=== PATIENT | female | born 1955 | race African-American/Black ===

== ENCOUNTER 2020-08-31 11:16 | Inpatient (IN) | payer OTHER ==
[2020-08-31] MEDS ORDERED: KETOROLAC TROMETHAMINE 60 MG/2 ML VIAL IM ONE (12:46)
[2020-08-31] MEDS ORDERED: diazePAM 2 MG TABLET PO ONE (12:47)
[2020-08-31] MEDS ORDERED: LIDOCAINE 5% TOPICAL PATCH TP ONE (12:47)
[2020-08-31] MEDS ORDERED: ACETAMINOPHEN 500 MG TABLET (FP) PO ONE (12:47)
[2020-08-31] MEDS ORDERED: LIDOCAINE 5% TOPICAL PATCH ONE (12:57)
[2020-08-31] MEDS ORDERED: ACETAMINOPHEN 500 MG TABLET (FP) ONE (12:58)
[2020-08-31] MEDS ORDERED: KETOROLAC TROMETHAMINE 30 MG/1 ML VIAL ONE (12:58)
[2020-08-31] MEDS ORDERED: diazePAM 2 MG TABLET ONE (12:58)
[2020-08-31] MEDS ORDERED: predniSONE 20 MG TABLET (UD) PO ONE (14:45)
[2020-08-31] MEDS ORDERED: morphine CARPU-JECT 2 MG/1 ML DISP.SYRIN IVPUSH ONE (14:59)
[2020-08-31] MEDS ORDERED: ONDANSETRON 4 MG/2 ML VIAL IVPUSH ONE (14:59)
[2020-08-31] MEDS ORDERED: MORPHINE SULFATE 2 MG/ML VIAL ONE (15:21)
[2020-08-31] MEDS ORDERED: ONDANSETRON 4 MG/2 ML VIAL ONE (15:21)
[2020-08-31] MEDS ORDERED: predniSONE 20 MG TABLET (UD) ONE (15:21)
[2020-08-31 15:30] LABS: BASO % 0.7 % (0-2.0); EOS % 0.2 % (0-4.5); HEMATOCRIT 34.5 % (32.4-45.2); HEMOGLOBIN 11.4 GM/dL (10.7-15.3); LYMPH % 24.7 % (8-40); MCH 29.9 pg (25.7-33.7); MCHC 33.2 g/dl (32.0-36.0); MEAN CELL VOLUME 90.1 fl (80-96); MEAN PLT VOLUME 8.3 fl (7.5-11.1); MONO % 10.4 % (3.8-10.2); PLATELET COUNT 262 K/MM3 (134-434); RBC 3.82 M/mm3 (3.60-5.2); RDW 12.7 % (11.6-15.6); WHITE BLOOD COUNT 5.7 K/mm3 (4.0-10.0)
[2020-08-31 15:53] LABS: POTASSIUM 3.6 mmol/L (3.5-5.1)
[2020-08-31 15:55] LABS: CALCIUM 9.5 mg/dL (8.5-10.1)
[2020-08-31 15:56] LABS: ALBUMIN 4.2 g/dl (3.4-5.0); BLOOD UREA NITROGEN 11.6 mg/dL (7-18)
[2020-08-31 15:59] LABS: CREATININE 0.9 mg/dL (0.55-1.3)
[2020-08-31 16:01] LABS: BILIRUBIN,TOTAL 0.4 mg/dL (0.2-1)
[2020-08-31 20:07] LABS: PH,URINE 7.5 (5.0-8.0); URINE APPEARANCE CLEAR; URINE BILIRUBIN NEGATIVE (NEGATIVE); URINE COLOR YELLOW; URINE GLUCOSE (UA) NEGATIVE (NEGATIVE); URINE KETONE 2+ (NEGATIVE); URINE LEUK ESTERASE NEGATIVE (NEGATIVE); URINE NITRITE NEGATIVE (NEGATIVE); URINE PROTEIN NEGATIVE (NEGATIVE); URINE UROBILINOGEN 0.2 mg/dL (0.2-1.0)
[2020-08-31] MEDS ORDERED: LIDOCAINE PATCH REMOVAL MC ONE (22:00)
[2020-09-01 00:15] VITALS: BMI 19.6
[2020-09-01] MEDS ORDERED: TIZANIDINE HCL 2 MG TABLET PO PRN (05:58)
[2020-09-01] MEDS ORDERED: ACETAMINOPHEN 325 MG TABLET (FP) PO ONE (06:00)
[2020-09-01] MEDS ORDERED: ACETAMINOPHEN 1000 MG/100 ML VIAL (NON FORMULARY) IVPB PRN ×2 (09:34→10:48)
[2020-09-01] MEDS: ENOXAPARIN NA (PORCINE) 40 MG/0.4 ML DISP.SYRIN SQ SCH (09:42)
[2020-09-01] MEDS: GABAPENTIN 100 MG CAPSULE PO SCH (22:08)
[2020-09-02] MEDS: GABAPENTIN 100 MG CAPSULE PO SCH (06:48)
[2020-09-02] MEDS: methylPREDNISolone 4 MG TABLET PO SCH ×3 (09:20→21:51)
[2020-09-02 10:11] LABS: BASO % 0.5 % (0-2.0); EOS % 0.7 % (0-4.5); HEMATOCRIT 33.7 % (32.4-45.2); HEMOGLOBIN 11.2 GM/dL (10.7-15.3); LYMPH % 27.1 % (8-40); MCH 30.4 pg (25.7-33.7); MCHC 33.3 g/dl (32.0-36.0); MEAN CELL VOLUME 91.1 fl (80-96); MEAN PLT VOLUME 8.6 fl (7.5-11.1); MONO % 7.9 % (3.8-10.2); NEUT % 63.8 % (42.8-82.8); PLATELET COUNT 248 K/MM3 (134-434); RDW 12.7 % (11.6-15.6); WHITE BLOOD COUNT 5.4 K/mm3 (4.0-10.0)
[2020-09-02 10:42] LABS: CALCIUM 8.8 mg/dL (8.5-10.1)
[2020-09-02 10:43] LABS: ALBUMIN 3.4 g/dl (3.4-5.0)
[2020-09-02] MEDS: ENOXAPARIN NA (PORCINE) 40 MG/0.4 ML DISP.SYRIN SQ SCH (10:44)
[2020-09-02 10:45] LABS: CREATININE 0.9 mg/dL (0.55-1.3); PHOSPHOROUS 2.6 mg/dL (2.5-4.9)
[2020-09-02 10:47] LABS: BILIRUBIN,TOTAL 0.7 mg/dL (0.2-1)
[2020-09-02 11:12] LABS: POTASSIUM 3.8 mmol/L (3.5-5.1)
[2020-09-02] MEDS: GABAPENTIN 300 MG CAPSULE PO SCH ×2 (14:12→21:51)
[2020-09-02] MEDS ORDERED: PT OWN MED DRAWER 7, Y5N ONE (21:05)
[2020-09-03] MEDS: GABAPENTIN 300 MG CAPSULE PO SCH ×3 (06:18→21:00)
[2020-09-03] MEDS: ENOXAPARIN NA (PORCINE) 40 MG/0.4 ML DISP.SYRIN SQ SCH (09:20)
[2020-09-03] MEDS: methylPREDNISolone 4 MG TABLET PO SCH ×4 (09:20→21:00)
[2020-09-03 09:53] LABS: BASO % 0.5 % (0-2.0); EOS % 0.9 % (0-4.5); HEMATOCRIT 36.5 % (32.4-45.2); HEMOGLOBIN 12.3 GM/dL (10.7-15.3); LYMPH % 32.4 % (8-40); MCH 30.5 pg (25.7-33.7); MCHC 33.6 g/dl (32.0-36.0); MEAN CELL VOLUME 90.8 fl (80-96); MEAN PLT VOLUME 8.2 fl (7.5-11.1); MONO % 8.4 % (3.8-10.2); NEUT % 57.8 % (42.8-82.8); PLATELET COUNT 284 K/MM3 (134-434); RBC 4.02 M/mm3 (3.60-5.2); RDW 12.7 % (11.6-15.6); WHITE BLOOD COUNT 6.1 K/mm3 (4.0-10.0)
[2020-09-03 10:20] LABS: POTASSIUM 4.2 mmol/L (3.5-5.1)
[2020-09-03 10:23] LABS: ALBUMIN 3.9 g/dl (3.4-5.0); BLOOD UREA NITROGEN 13.1 mg/dL (7-18); CALCIUM 9.2 mg/dL (8.5-10.1); MAGNESIUM 2.3 mg/dL (1.8-2.4)
[2020-09-03 10:26] LABS: CREATININE 0.7 mg/dL (0.55-1.3)
[2020-09-03 10:27] LABS: PHOSPHOROUS 3.6 mg/dL (2.5-4.9)
[2020-09-03 10:28] LABS: BILIRUBIN,TOTAL 0.4 mg/dL (0.2-1); TOT PROT 7.9 g/dl (6.4-8.2)
[2020-09-03] MEDS ORDERED: TIZANIDINE HCL 2 MG TABLET PO SCH (11:00)
[2020-09-03] MEDS: TIZANIDINE HCL 2 MG TABLET PO SCH ×2 (13:22→21:00)
[2020-09-03] MEDS ORDERED: PT OWN MED DRAWER 7, Y5N ONE ×2 (20:56→21:08)
[2020-09-04] MEDS ORDERED: PT OWN MED DRAWER 7, Y5N ONE ×5 (06:25→21:07)
[2020-09-04] MEDS: GABAPENTIN 300 MG CAPSULE PO SCH ×3 (06:50→21:21)
[2020-09-04] MEDS: TIZANIDINE HCL 2 MG TABLET PO SCH ×3 (06:51→21:21)
[2020-09-04] MEDS: DOCUSATE SODIUM 100 MG CAPSULE (FP) PO PRN (06:51)
[2020-09-04] MEDS ORDERED: SODIUM PHOSPHATE/NA BIPHOS 133 ML ENEMA RC ONE (09:16)
[2020-09-04 09:23] LABS: BASO % 0.6 % (0-2.0); EOS % 0.5 % (0-4.5); HEMATOCRIT 36.7 % (32.4-45.2); HEMOGLOBIN 12.3 GM/dL (10.7-15.3); LYMPH % 28.3 % (8-40); MCH 30.4 pg (25.7-33.7); MCHC 33.6 g/dl (32.0-36.0); MEAN CELL VOLUME 90.6 fl (80-96); MEAN PLT VOLUME 8.3 fl (7.5-11.1); MONO % 8.4 % (3.8-10.2); NEUT % 62.2 % (42.8-82.8); PLATELET COUNT 260 K/MM3 (134-434); RBC 4.05 M/mm3 (3.60-5.2); RDW 12.9 % (11.6-15.6); WHITE BLOOD COUNT 7.1 K/mm3 (4.0-10.0)
[2020-09-04] MEDS: ENOXAPARIN NA (PORCINE) 40 MG/0.4 ML DISP.SYRIN SQ SCH (09:30)
[2020-09-04] MEDS: methylPREDNISolone 4 MG TABLET PO SCH ×4 (09:33→21:21)
[2020-09-04 09:53] LABS: POTASSIUM 4.2 mmol/L (3.5-5.1)
[2020-09-04 10:13] LABS: ALBUMIN 3.9 g/dl (3.4-5.0); BLOOD UREA NITROGEN 15.5 mg/dL (7-18); CALCIUM 9.4 mg/dL (8.5-10.1); MAGNESIUM 2.3 mg/dL (1.8-2.4)
[2020-09-04 10:16] LABS: CREATININE 0.7 mg/dL (0.55-1.3); PHOSPHOROUS 3.8 mg/dL (2.5-4.9)
[2020-09-04 10:17] LABS: BILIRUBIN,TOTAL 0.4 mg/dL (0.2-1); TOT PROT 8.2 g/dl (6.4-8.2)
[2020-09-04] MEDS: LIDOCAINE 5% TOPICAL PATCH TP SCH (14:13)
[2020-09-04 18:05] LABS: EPI CELLS 3 /uL (0-25.1); HYALINE CASTS 0 /uL (0-3.1); URINE APPEARANCE Clear; URINE BACTERIA 94 /uL (0-1359); URINE BILIRUBIN Negative (NEGATIVE); URINE COLOR Yellow; URINE GLUCOSE (UA) 100 (NEGATIVE); URINE KETONE Negative (NEGATIVE); URINE LEUK ESTERASE Trace (NEGATIVE); URINE NITRITE Negative (NEGATIVE); URINE PROTEIN Negative (NEGATIVE); URINE RBC 11 /uL (0-23.9); URINE UROBILINOGEN 0.2 mg/dL (0.2-1.0); URINE WBC 5 /uL (0-25.8)
[2020-09-04] MEDS ORDERED: ACETAMINOPHEN 500 MG TABLET (FP) PO PRN (21:13)
[2020-09-04] MEDS: LIDOCAINE PATCH REMOVAL MC SCH (21:20)
[2020-09-05] MEDS: TIZANIDINE HCL 2 MG TABLET PO SCH ×3 (06:28→21:34)
[2020-09-05] MEDS: GABAPENTIN 300 MG CAPSULE PO SCH ×3 (06:28→21:33)
[2020-09-05 08:41] LABS: BASO % 0.3 % (0-2.0); EOS % 0.5 % (0-4.5); HEMATOCRIT 35.8 % (32.4-45.2); HEMOGLOBIN 12.1 GM/dL (10.7-15.3); LYMPH % 28.5 % (8-40); MCH 30.6 pg (25.7-33.7); MCHC 33.7 g/dl (32.0-36.0); MEAN CELL VOLUME 90.6 fl (80-96); MEAN PLT VOLUME 8.3 fl (7.5-11.1); MONO % 8.8 % (3.8-10.2); NEUT % 61.9 % (42.8-82.8); PLATELET COUNT 265 K/MM3 (134-434); RBC 3.95 M/mm3 (3.60-5.2); RDW 12.9 % (11.6-15.6); WHITE BLOOD COUNT 6.3 K/mm3 (4.0-10.0)
[2020-09-05 09:15] LABS: POTASSIUM 4.3 mmol/L (3.5-5.1)
[2020-09-05] MEDS ORDERED: PT OWN MED DRAWER 7, Y5N ONE ×4 (09:21→21:25)
[2020-09-05 09:28] LABS: ALBUMIN 3.9 g/dl (3.4-5.0); CALCIUM 9.4 mg/dL (8.5-10.1)
[2020-09-05 09:29] LABS: MAGNESIUM 2.4 mg/dL (1.8-2.4)
[2020-09-05 09:32] LABS: BILIRUBIN,TOTAL 0.4 mg/dL (0.2-1); CREATININE 0.7 mg/dL (0.55-1.3); PHOSPHOROUS 3.8 mg/dL (2.5-4.9)
[2020-09-05 09:33] LABS: TOT PROT 7.8 g/dl (6.4-8.2)
[2020-09-05 09:38] LABS: BLOOD UREA NITROGEN 18.8 mg/dL (7-18)
[2020-09-05] MEDS: ENOXAPARIN NA (PORCINE) 40 MG/0.4 ML DISP.SYRIN SQ SCH (09:39)
[2020-09-05] MEDS: LIDOCAINE 5% TOPICAL PATCH TP SCH (09:39)
[2020-09-05] MEDS: methylPREDNISolone 4 MG TABLET PO SCH ×3 (09:40→21:33)
[2020-09-05] MEDS: POLYETHYLENE GLYCOL 3350 119 GM BTL PO SCH (11:47)
[2020-09-05] MEDS ORDERED: SENNOSIDES 8.6MG TABLET (FP) PO SCH (22:00)
[2020-09-05] MEDS: LIDOCAINE PATCH REMOVAL MC SCH (22:00)
[2020-09-06] MEDS: GABAPENTIN 300 MG CAPSULE PO SCH ×3 (05:38→22:31)
[2020-09-06] MEDS: TIZANIDINE HCL 2 MG TABLET PO SCH ×3 (05:38→22:33)
[2020-09-06] MEDS ORDERED: THROMBIN (BOVINE) 5,000 UNIT VIAL TP ONE ×2 (07:40→10:08)
[2020-09-06] MEDS ORDERED: BACITRACIN 15 GM TUBE TOPICAL OINTMENT ONE (07:40)
[2020-09-06] MEDS ORDERED: SODIUM CHLORIDE 0.9% P/F 10 ML VIAL IJ ONE (07:45)
[2020-09-06] MEDS ORDERED: EPHEDRINE SULFATE/0.9% NACL/PF 50 MG/10 ML SYRINGE NR ONE (08:20)
[2020-09-06] MEDS ORDERED: ROCURONIUM BROMIDE 50 MG/5 ML SYRINGE ONE (08:20)
[2020-09-06] MEDS ORDERED: SUCCINYLCHOLINE CHLORIDE 200 MG/10 ML SYRINGE ONE (08:20)
[2020-09-06] MEDS ORDERED: MIDAZOLAM HCL 2 MG/2 ML SINGLE DOSE VIAL ONE (08:20)
[2020-09-06] MEDS ORDERED: PROPOFOL 20 ML ONE (08:20)
[2020-09-06] MEDS ORDERED: PHENYLEPHRINE HCL 10 MG/1 ML SINGLE DOSE VIAL ONE (08:20)
[2020-09-06] MEDS ORDERED: ONDANSETRON 4 MG/2 ML VIAL IVPUSH PRN ×2 (09:19→11:20)
[2020-09-06 09:26] LABS: BASO % 0.5 % (0-2.0); EOS % 0.5 % (0-4.5); HEMATOCRIT 34.8 % (32.4-45.2); HEMOGLOBIN 11.6 GM/dL (10.7-15.3); LYMPH % 34.2 % (8-40); MCHC 33.2 g/dl (32.0-36.0); MEAN CELL VOLUME 90.3 fl (80-96); MEAN PLT VOLUME 8.4 fl (7.5-11.1); MONO % 9.6 % (3.8-10.2); NEUT % 55.2 % (42.8-82.8); PLATELET COUNT 278 K/MM3 (134-434); RBC 3.85 M/mm3 (3.60-5.2); RDW 13.1 % (11.6-15.6); WHITE BLOOD COUNT 6.7 K/mm3 (4.0-10.0)
[2020-09-06 09:48] LABS: INR 1.03 (0.83-1.09); PROTHROMBIN TIME (PATIENT) 12.5 SEC (9.7-13.0)
[2020-09-06] MEDS ORDERED: ceFAZolin SODIUM 1 GM VIAL IVPB ONE (09:50)
[2020-09-06 09:56] LABS: POTASSIUM 4.7 mmol/L (3.5-5.1)
[2020-09-06] MEDS ORDERED: HYDROmorphone HCl 2 MG/ML VIAL ONE (09:58)
[2020-09-06] MEDS: LACTATED RINGERS SOLUTION 1,000 ML IV SCH (09:58)
[2020-09-06] MEDS: methylPREDNISolone 4 MG TABLET PO SCH ×2 (09:59→22:31)
[2020-09-06] MEDS: LIDOCAINE 5% TOPICAL PATCH TP SCH (09:59)
[2020-09-06] MEDS: POLYETHYLENE GLYCOL 3350 119 GM BTL PO SCH (09:59)
[2020-09-06] MEDS ORDERED: BACITRACIN 50,000 UNITS VIAL TP ONE (10:08)
[2020-09-06 10:36] LABS: CALCIUM 9.3 mg/dL (8.5-10.1)
[2020-09-06 10:37] LABS: ALBUMIN 3.9 g/dl (3.4-5.0); BLOOD UREA NITROGEN 15.1 mg/dL (7-18)
[2020-09-06 10:40] LABS: CREATININE 0.7 mg/dL (0.55-1.3)
[2020-09-06 10:41] LABS: TOT PROT 7.8 g/dl (6.4-8.2)
[2020-09-06 10:42] LABS: BILIRUBIN,TOTAL 0.4 mg/dL (0.2-1)
[2020-09-06] MEDS ORDERED: ACETAMINOPHEN INJECTION 100 ML IVPB ONE (10:45)
[2020-09-06] MEDS ORDERED: BUPIVACAINE HCL/PF 0.5% (5MG/ML) 10 ML VIAL IJ ONE (10:50)
[2020-09-06] MEDS ORDERED: NEOSTIGMINE METHYLSULFATE 0.5 MG/1 ML - 10 ML MDV ONE (10:51)
[2020-09-06] MEDS ORDERED: ACETAMINOPHEN 1000 MG/100 ML VIAL (NON FORMULARY) IVPB ONE (10:58)
[2020-09-06] MEDS ORDERED: oxyCODONE HCL 5 MG TABLET PO PRN (11:20)
[2020-09-06] MEDS ORDERED: BACITRACIN 15 GM TUBE TOPICAL OINTMENT TP ONE ×2 (11:21)
[2020-09-06] MEDS ORDERED: HYDROmorphone HCl 2 MG/ML VIAL IVPUSH PRN (11:22)
[2020-09-06] MEDS ORDERED: D5-1/2NS+20 MEQ KCL - 20 MEQ/1,000 ML INFUS.BAG IV SCH (11:30)
[2020-09-06] MEDS ORDERED: GLYCOPYRROLATE 0.2 MG/1 ML VIAL ONE (12:29)
[2020-09-06] MEDS ORDERED: ONDANSETRON 4 MG/2 ML VIAL ONE (12:29)
[2020-09-06] MEDS ORDERED: ceFAZolin SODIUM 1 GM VIAL ONE ×2 (12:29→18:28)
[2020-09-06] MEDS ORDERED: DEXAMETHASONE SOD PHOSPHATE 4 MG/1 ML VIAL ONE (12:29)
[2020-09-06] MEDS: diazePAM 5 MG TABLET PO SCH ×2 (17:03→22:31)
[2020-09-06] MEDS: DOCUSATE SODIUM 100 MG CAPSULE (FP) PO SCH ×2 (17:04→22:33)
[2020-09-06] MEDS ORDERED: DEXTROSE 5%-WATER - 50 ML IVPB ONE (18:29)
[2020-09-06] MEDS: CEFAZOLIN 1 GM in DEXTROSE 5%-WATER - 50 ML IVPB SCH (18:39)
[2020-09-06] MEDS: DOCUSATE SODIUM 100 MG CAPSULE (FP) PO PRN (18:40)
[2020-09-06] MEDS ORDERED: PT OWN MED DRAWER 7, Y5N ONE (22:00)
[2020-09-06] MEDS: LIDOCAINE PATCH REMOVAL MC SCH (22:37)
[2020-09-07] MEDS ORDERED: ceFAZolin SODIUM 1 GM VIAL ONE ×2 (01:03→11:04)
[2020-09-07] MEDS ORDERED: DEXTROSE 5%-WATER - 50 ML IVPB ONE ×2 (01:03→11:04)
[2020-09-07] MEDS: CEFAZOLIN 1 GM in DEXTROSE 5%-WATER - 50 ML IVPB SCH ×3 (01:07→18:22)
[2020-09-07] MEDS: diazePAM 5 MG TABLET PO SCH ×2 (06:45→13:07)
[2020-09-07] MEDS: GABAPENTIN 300 MG CAPSULE PO SCH ×2 (06:45→13:05)
[2020-09-07] MEDS: DOCUSATE SODIUM 100 MG CAPSULE (FP) PO SCH ×2 (06:46→13:05)
[2020-09-07] MEDS: TIZANIDINE HCL 2 MG TABLET PO SCH ×2 (06:46→13:05)
[2020-09-07] MEDS: ACETAMINOPHEN 325 MG TABLET (FP) PO PRN ×2 (06:46→19:44)
[2020-09-07 09:27] LABS: BASO % 0.2 % (0-2.0); HEMATOCRIT 31.9 % (32.4-45.2); HEMOGLOBIN 10.7 GM/dL (10.7-15.3); LYMPH % 20.3 % (8-40); MCH 30.4 pg (25.7-33.7); MCHC 33.6 g/dl (32.0-36.0); MEAN CELL VOLUME 90.2 fl (80-96); MEAN PLT VOLUME 8.4 fl (7.5-11.1); MONO % 9.3 % (3.8-10.2); NEUT % 70.2 % (42.8-82.8); PLATELET COUNT 260 K/MM3 (134-434); RBC 3.53 M/mm3 (3.60-5.2); RDW 13.3 % (11.6-15.6); WHITE BLOOD COUNT 10.3 K/mm3 (4.0-10.0)
[2020-09-07 09:53] LABS: POTASSIUM 4.4 mmol/L (3.5-5.1)
[2020-09-07] MEDS ORDERED: methylPREDNISolone 4 MG TABLET PO ONE (10:00)
[2020-09-07 10:54] LABS: ALBUMIN 3.6 g/dl (3.4-5.0); CALCIUM 9.6 mg/dL (8.5-10.1)
[2020-09-07 10:55] LABS: BLOOD UREA NITROGEN 15.4 mg/dL (7-18)
[2020-09-07 10:58] LABS: BILIRUBIN,TOTAL 0.6 mg/dL (0.2-1); CREATININE 0.8 mg/dL (0.55-1.3); TOT PROT 7.4 g/dl (6.4-8.2)
[2020-09-07] MEDS: LACTATED RINGERS SOLUTION 1,000 ML IV SCH (11:07)
[2020-09-07] MEDS: POLYETHYLENE GLYCOL 3350 119 GM BTL PO SCH (11:11)
[2020-09-07] MEDS: LIDOCAINE 5% TOPICAL PATCH TP SCH (11:34)
[2020-09-07 22:25] VITALS: BP 105/62; PULSE 84; TEMP 97.8
== END 2020-09-07 21:00 | disposition home or self-care (01) | DRG 520 ==
LOC: JERFT 11:16 → JER 11:16 → JERBED 17:26 → J6S 22:51
PROVIDERS: ADMIT Internal Medicine; ATTEND Student in an Organized Health Care Education/Training Program
PROC: 01NR0ZZ Release Sacral Nerve, Open Approach (ICD-10-PCS; 2020-09-06)
PROC: 0SB40ZZ Excision of Lumbosacral Disc, Open Approach (ICD-10-PCS; principal; 2020-09-06 09:00)
DX: M51.17 Intervertebral disc disorders with radiculopathy, lumbosacral region (principal); M47.27 Other spondylosis with radiculopathy, lumbosacral region; M25.80 Other specified joint disorders, unspecified joint
CPT/HCPCS: 36415; 72100-TC-FY; 72148-TC; 76705-TC; 80053; 81003; 82962; 83735; 84100; 85025; 85610; 86850; 86900; 86901; 87086; 87186; 93005; 93010; 94010; 94760; 97116-GP; 97161-GP; 99285-25; C9803; J0131; U0003

== ENCOUNTER 2021-03-07 04:32 | Emergency (ER) | payer OTHER ==
[2021-03-07 04:53] VITALS: BP 131/72; PULSE 63; TEMP 97.9; BMI 19.6
[2021-03-07 05:51] LABS: BASO % 0.6 % (0-2.0); EOS % 1.7 % (0-4.5); HEMATOCRIT 32.7 % (32.4-45.2); HEMOGLOBIN 11.2 GM/dL (10.7-15.3); MCH 30.9 pg (25.7-33.7); MCHC 34.2 g/dl (32.0-36.0); MEAN CELL VOLUME 90.2 fl (80-96); MEAN PLT VOLUME 8.1 fl (7.5-11.1); NEUT % 58.7 % (42.8-82.8); PLATELET COUNT 260 10^3/uL (134-434); RBC 3.62 M/mm3 (3.60-5.2); RDW 12.9 % (11.6-15.6); WHITE BLOOD COUNT 4.2 K/mm3 (4.0-10.0)
[2021-03-07 06:10] LABS: CHLORIDE 106 mmol/L (98-107); SODIUM 140 mmol/L (136-145)
[2021-03-07 06:13] LABS: ALBUMIN 4.1 g/dl (3.4-5.0); ANION GAP 7 MMOL/L (8-16); BLOOD UREA NITROGEN 10.5 mg/dL (7-18); CALCIUM 8.7 mg/dL (8.5-10.1); CO2 27 mmol/L (21-32); GLUCOSE,RANDOM 87 mg/dL (74-106); MAGNESIUM 2.3 mg/dL (1.8-2.4)
[2021-03-07 06:16] LABS: CREATININE 0.8 mg/dL (0.55-1.3); SGOT/AST 22 U/L (15-37); SGPT/ALT 23 U/L (13-61)
[2021-03-07 06:18] LABS: BILIRUBIN,TOTAL 0.5 mg/dL (0.2-1); TOT PROT 7.6 g/dl (6.4-8.2)
[2021-03-07 06:19] LABS: ALK PHOS 60 U/L (45-117)
== END 2021-03-07 12:40 | disposition home or self-care (01) ==
LOC: JER 04:32
DX: R20.2 Paresthesia of skin (principal)
CPT/HCPCS: 36415; 70450-TC; 71046-TC-FY; 72125-TC; 80053; 82550; 83735; 84484; 85025; 93005; 93010; 99285-25; C9803; U0003; U0005

== ENCOUNTER 2021-06-01 08:28 | Emergency (ER) | payer OTHER ==
[2021-06-01 08:40] VITALS: BMI 19.3
[2021-06-01] MEDS ORDERED: ACETAMINOPHEN 1000 MG/100 ML VIAL IVPB ONE (09:03)
[2021-06-01] MEDS ORDERED: ACETAMINOPHEN INJECTION 100 ML IVPB ONE (09:10)
[2021-06-01] MEDS ORDERED: KETOROLAC TROMETHAMINE 30 MG/1 ML VIAL IM ONE (09:14)
[2021-06-01] MEDS ORDERED: LIDOCAINE 5% TOPICAL PATCH TP ONE (09:22)
[2021-06-01] MEDS ORDERED: KETOROLAC TROMETHAMINE 30 MG/1 ML VIAL IVPUSH ONE (09:29)
[2021-06-01 09:38] LABS: BASO % 1.4 % (0-2.0); EOS % 1.2 % (0-4.5); HEMOGLOBIN 11.3 GM/dL (10.7-15.3); LYMPH % 20.5 % (8-40); MCH 30.5 pg (25.7-33.7); MCHC 34.2 g/dl (32.0-36.0); MEAN PLT VOLUME 8.5 fl (7.5-11.1); MONO % 4.9 % (3.8-10.2); PLATELET COUNT 266 10^3/uL (134-434); RBC 3.71 M/mm3 (3.60-5.2); RDW 13.4 % (11.6-15.6); WHITE BLOOD COUNT 7.1 K/mm3 (4.0-10.0)
[2021-06-01 09:45] LABS: INR 0.97 (0.83-1.09); PROTHROMBIN TIME (PATIENT) 11.3 SEC (9.7-13.0)
[2021-06-01 09:48] LABS: ACTIVATED PTT 19.1 SECONDS (25.2-36.5)
[2021-06-01 09:58] LABS: CALCIUM 9.4 mg/dL (8.5-10.1)
[2021-06-01] MEDS ORDERED: KETOROLAC TROMETHAMINE 30 MG/1 ML VIAL ONE (09:58)
[2021-06-01] MEDS ORDERED: LIDOCAINE 5% TOPICAL PATCH ONE (09:58)
[2021-06-01 09:59] LABS: ALBUMIN 3.6 g/dl (3.4-5.0); BLOOD UREA NITROGEN 13.5 mg/dL (7-18)
[2021-06-01 10:02] LABS: CREATININE 0.8 mg/dL (0.55-1.3)
[2021-06-01 10:03] LABS: BILIRUBIN,TOTAL 0.4 mg/dL (0.2-1)
[2021-06-01 10:04] LABS: TOT PROT 7.3 g/dl (6.4-8.2)
[2021-06-01] MEDS ORDERED: traMADol HCL 50 MG TABLET PO ONE (10:27)
[2021-06-01] MEDS ORDERED: predniSONE 20 MG TABLET (UD) PO ONE ×2 (11:25→12:33)
[2021-06-01] MEDS ORDERED: predniSONE 20 MG TABLET (UD) ONE (12:03)
[2021-06-01] MEDS ORDERED: traMADol HCL 50 MG TABLET ONE (12:04)
[2021-06-01 12:22] VITALS: BP 115/65; PULSE 64; TEMP 98
[2021-06-01] MEDS ORDERED: LIDOCAINE PATCH REMOVAL MC ONE (22:00)
== END 2021-06-01 12:25 ==
LOC: JER 08:28
PROC: 3E033GC Introduction of Other Therapeutic Substance into Peripheral Vein, Percutaneous Approach (ICD-10-PCS; principal; 2021-06-01)
DX: M54.16 Radiculopathy, lumbar region (principal)
CPT/HCPCS: 36415; 80053; 85025; 85610; 85730; 86850; 86900; 86901; 93005; 93010; 99284-25; J0131